=== PATIENT | male | born 1990 ===

== ENCOUNTER 2022-09-16 06:28 | Emergency (ER) | payer MEDICAID ==
[~2022-09-16] VITALS: Ht 193 cm; Wt 90.9 kg
[2022-09-16 07:00] VITALS: BP 144/83
[2022-09-16] MEDS ORDERED: bacitracin 15gm ointment TP ONE (10:40)
[2022-09-16] MEDS ORDERED: LIDOCAINE 1%/EPI 1:100,000 inj. 10 ML multi-dose vial IJ ONE (10:40)
[2022-09-16] MEDS ORDERED: TETanus/Pertussis (Acell)/Diphther VAC/PF (Tdap-Adult) 0.5ml syringe IMVAC ONE (10:40)
[2022-09-16] MEDS ORDERED: LIDOCAINE 2%/EPI 1:100,000 inj. Multi-dose 20 ML VIAL IJ ONE (10:49)
[2022-09-16] MEDS ORDERED: SULF1TAB49 PO (10:51)
[2022-09-16] MEDS ORDERED: sulfamethoxazole/trimethoprim DS (800/160mg) tablet PO ONE (11:35)
== END 2022-09-16 12:04 | disposition home or self-care (01) ==
LOC: ER 06:28
DX: L02.232 Carbuncle of back [any part, except buttock and flank] (principal)
CPT/HCPCS: 10060; 90471; 90715; 99283; A6449